=== PATIENT | female | born 1930 | race Two or more races ===

== ENCOUNTER 2019-12-30 08:43 | Outpatient (CLI) | payer OTHER ==
[~2019-12-30 08:43] MED LIST: CALTRATE-600600 MG; FOSAMAX10 MG; GLIMEPIRIDE2 MG; HYZAAR 50-12.1 UDTAB; PREVACID30 MG; TROMBONEX CAPSU1 CAP; VITAMIN D1000 UNIT
== END 2019-12-30 08:47 | disposition home or self-care (01) ==
LOC: RX STUDY 08:43
PROVIDERS: ATTEND Internal Medicine Gastroenterology
DX: R10.13 Epigastric pain (principal)